=== PATIENT | female | born 1990 | race African-American/Black ===

== ENCOUNTER 2019-10-21 17:14 | Emergency (ER) | payer SELFPAY ==
[~2019-10-21] VITALS: Ht 154.9 cm; Wt 75.2 kg
[2019-10-21] MEDS ORDERED: KETOROLAC 60MG/2ML VIAL IM ONE (22:15)
[2019-10-21 23:30] VITALS: BP 131/74
== END 2019-10-21 23:31 | disposition home or self-care (01) ==
LOC: ER 17:14
DX: J06.9 Acute upper respiratory infection, unspecified (principal)
CPT/HCPCS: 71045; 81025; 96372; 99283; J1885

== ENCOUNTER 2021-11-29 10:50 | Emergency (ER) | payer OTHER, MEDICAID ==
[~2021-11-29] VITALS: Ht 154.9 cm; Wt 76.0 kg
[2021-11-29] MEDS ORDERED: KETOROLAC 60MG/2ML VIAL IM ONE (11:15)
[2021-11-29] MEDS ORDERED: LIDOCAINE 5% PATCH TOP SCH (11:15)
[2021-11-29] MEDS ORDERED: IBUP-2029 MT (13:06)
[2021-11-29] MEDS ORDERED: LIDO1ADH5 TP (13:06)
[2021-11-29 13:26] VITALS: BP 126/71
== END 2021-11-29 13:26 | disposition home or self-care (01) ==
LOC: ER 10:50
DX: R07.2 Precordial pain (principal)
CPT/HCPCS: 71045; 81025; 93005; 96372; 99283; J1885

== ENCOUNTER 2023-02-10 19:23 | Emergency (ER) | payer OTHER ==
[~2023-02-10] VITALS: Ht 154.9 cm; Wt 71.6 kg
[~2023-02-10 19:23] MED LIST: IBUP-2029 MT; LIDO1ADH5 TP
[2023-02-10 21:28] LABS: CLARITY URINE CLEAR (CLEAR); COLOR URINE YELLOW (YELLOW); KETONES URINE NEGATIVE (NEGATIVE); LEUKOCYTE ESTERASE URINE NEGATIVE (NEGATIVE); NITRITE URINE NEGATIVE (NEGATIVE); OCCULT BLOOD URINE NEGATIVE (NEGATIVE); PH URINE 6.5 (4.5-8.0); PROTEIN URINE NEGATIVE (NEGATIVE); SPECIFIC GRAVITY URINE 1.003 (1.005-1.030); UROBILINOGEN URINE 0.2 E.U./dL (0.2-1.0)
[2023-02-10 21:32] LABS: BASOPHILS % 0.8 % (0.0-2.0); EOSINOPHILS % 3.1 % (0.0-5.0); HEMATOCRIT. 35.8 % (36.0-48.0); HEMOGLOBIN. 12.4 g/dL (12.0-16.0); LYMPHOCYTES % 37.1 % (20.0-50.0); MEAN CORPUSCULAR HEMOGLOBIN 32.4 pg (28.0-32.0); MEAN CORPUSCULAR VOLUME 93.6 fL (81.0-99.0); MEAN PLATELET VOLUME 7.8 fl (7.4-10.4); PLATELET 381 x1000/uL (130-400); RED BLOOD CELL COUNT 3.83 mill/uL (4.2-5.4); RED CELL DISTRIBUTION WIDTH 12.3 % (11.6-14.6)
[2023-02-10 21:41] LABS: *AMPHETAMINES SCREEN URINE NEGATIVE (NEGATIVE); *BARBITURATES SCREEN URINE NEGATIVE (NEGATIVE); *BENZODIAZEPINES SCREEN URINE NEGATIVE (NEGATIVE); *COCAINE SCREEN URINE NEGATIVE (NEGATIVE); METHADONE URINE SCREEN NEGATIVE (NEGATIVE); OPIATES URINE SCREEN NEGATIVE (NEGATIVE); PHENCYCLIDINE URINE SCREEN NEGATIVE (NEGATIVE)
[2023-02-10 21:48] LABS: HCG SCREEN NEGATIVE
[2023-02-10 21:49] LABS: CHLORIDE 111 mEq/L (98-107)
[2023-02-10 21:52] LABS: ETHANOL BLOOD 10 mg/dL (-10)
[2023-02-10 22:12] LABS: CANNABINOID URINE SCREEN PRESUMTIVE POSITIVE (NEGATIVE)
[2023-02-11 15:35] LABS: CHLORIDE 110 mEq/L (98-107)
[2023-02-11 15:43] LABS: ETHANOL BLOOD < 10 mg/dL (-10)
[2023-02-12] MEDS ORDERED: LORAZEPAM 1MG TABLET PO ONE ×2 (21:00)
[2023-02-13] MEDS ORDERED: DIPHENHYDRAMINE 50MG/ML VIAL IM ONE
[2023-02-13] MEDS ORDERED: IBUPROFEN 600MG TABLET PO ONE (14:30)
[2023-02-13 14:41] VITALS: BP 129/81
== END 2023-02-13 14:42 ==
LOC: ER 19:23
DX: R45.851 Suicidal ideations (principal); J45.909 Unspecified asthma, uncomplicated; Z20.822 Contact with and (suspected) exposure to COVID-19
CPT/HCPCS: 36415; 80048; 80053; 80305; 80307; 80320; 80329; 81003; 81025; 83735; 84703; 85025; 87426; 93005; 99285; C9803; J1200; Z7610; G0480

== ENCOUNTER 2024-06-25 21:24 | Emergency (ER) | payer OTHER ==
[~2024-06-25] VITALS: Ht 165.1 cm; Wt 73.0 kg
[2024-06-25 21:28] VITALS: TEMP 99.3; O2SAT 99
[2024-06-25 23:25] VITALS: BP 132/80; PULSE 79; RESP 16; O2SAT 100
== END 2024-06-25 23:26 | disposition home or self-care (01) ==
LOC: ER 21:24
DX: J06.9 Acute upper respiratory infection, unspecified (principal); F12.10 Cannabis abuse, uncomplicated; J45.909 Unspecified asthma, uncomplicated
CPT/HCPCS: 99281

== ENCOUNTER 2024-06-28 04:09 | Emergency (ER) | payer OTHER ==
[~2024-06-28] VITALS: Ht 154.9 cm; Wt 74.2 kg
[2024-06-28 04:14] VITALS: O2SAT 97
[2024-06-28 04:17] VITALS: BP 136/66; PULSE 115; RESP 18; TEMP 98.5; O2SAT 99
[2024-06-28] MEDS: KETOROLAC 30MG/ML VIAL IM ONE (04:45)
[2024-06-28] MEDS: DEXAMETHASONE 4MG/ML 1ML VIAL IM ONE (04:45)
== END 2024-06-28 05:38 | disposition home or self-care (01) ==
LOC: ER 04:09
DX: J02.9 Acute pharyngitis, unspecified (principal); J45.909 Unspecified asthma, uncomplicated; F12.10 Cannabis abuse, uncomplicated
CPT/HCPCS: 96372; 99284; J1100; J1885; Z7610